=== PATIENT | female | born 1930 | race Caucasian/White ===

== ENCOUNTER 2016-12-13 14:30 | Inpatient (IN) | payer MEDICARE, OTHER ==
[~2016-12-13] VITALS: Ht 157.5 cm; Wt 69.4 kg
--- NOTE | ~2016-12-13 | PR ---
[place], [place] PROGRESS NOTE NAME: LISA LUIS UNIT #: [id number] ROOM: 408 DOCTOR: EDMUND NAJERA MD BIRTHDATE: [birth year] DOS: SUBJECTIVE: The patient is doing fine without any complaints this morning. OBJECTIVE: VITAL SIGNS: Blood pressure is 128/54, pulse of 95, respirations 20, temperature 98.5. LUNGS: Clear. HEART: Regular. ABDOMEN: Obese, soft, nontender. EXTREMITIES: Without any edema. ASSESSMENT AND PLAN: 1. Acute exacerbation of chronic obstructive pulmonary disease, stable and improved. 2. 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 As patient is stable, the plan is to discharge her to home today. She has achieved maximum benefit from her stay here. EDMUND NAJERA MD CM:PNTRANS [id number] EDMUND NAJERA MD 12/16/16 1241 interface
--- NOTE | ~2016-12-13 | WRIGHTHP ---
[place], [place] PATIENT HISTORY AND PHYSICAL EXAM NAME: LISA LUIS [facility] #: [id number] UNIT #: [id number] ROOM: 408 DOCTOR: EDMUND NAJERA MD BIRTHDATE: [birth year] DOS: 12/13/2016 HISTORY OF PRESENT ILLNESS: This patient is 86 years old, very well known to us. The patient came to the office with complaints of increasing difficulty breathing and a cough which is productive of scant amounts of sputum. She denied having any fever, chills, any chest pains or palpitations, does not have any abdominal pain, nausea, any emesis. Does not have any chest pain or pleuritic symptoms. The patient has been taking all her medications as well as breathing treatments at home and was not getting any better. PAST MEDICAL HISTORY: Significant for: 1. Last hospitalization in November 2015 with COPD exacerbation. 2. Chronic atrial fibrillation, on long-term use of anticoagulant. 3. Right atrial reentrant tachycardia. 4. History of asthma. 5. Benign hypertension. 6. Vera esophagus. 7. Hypothyroidism. 8. Sleep apnea. MEDICATIONS: She is on are Tylenol, amlodipine, Eliquis, KCl, Lexapro, levothyroxine, losartan, metoprolol, Protonix, MiraLax, Pravachol and zafirlukast. SOCIAL HISTORY: Nonsmoker, does not use any alcohol. Lives at home. PHYSICAL EXAMINATION: GENERAL: She is awake and alert and oriented. VITAL SIGNS: Graphic trend shows pressure is 120/56, pulse of 94, respirations 20, temperature 98.4. LUNGS: Diminished breath sounds. Scattered wheezes and rhonchi heard. HEART: Regular. ABDOMEN: Obese. EXTREMITIES: Without any edema. ASSESSMENT AND PLAN: An 86-year-old was seen in the office with acute exacerbation of COPD. I did try to admit, but there were no beds for direct admission. The patient was sent to the emergency room, was evaluated and was admitted. Lactic acid was normal. White cell count was normal. Chest x-ray showed COPD, no pneumonia was seen. ASSESSMENT AND PLAN: 1. Acute exacerbation of chronic obstructive pulmonary disease. The patient has been admitted. IV steroids, breathing treatments have been ordered. 2. Acute tracheobronchitis, on IV antibiotics. 3. Chronic atrial fibrillation, on Eliquis which will be continued. [place], [place] PATIENT HISTORY AND PHYSICAL EXAM NAME: LISA LUIS UNIT #: [id number] ROOM: 408 DOCTOR: EDMUND NAJERA MD BIRTHDATE: [birth year] EDMUND NAJERA MD CM:HISPHYS:PATIENT HISTORY AND PHYSICAL EXAMINATION [id number] EDMUND NAJERA MD 12/14/16 1117 interface
--- NOTE | ~2016-12-13 | DS ---
[place], [place] DISCHARGE SUMMARY NAME: LISA LUIS UNIT #: [id number] ROOM: 408 DOCTOR: EDMUND NAJERA MD BIRTHDATE: [birth year] DOS: 12/16/2016 DIAGNOSES: 1. Acute respiratory distress syndrome. 2. Acute exacerbation of chronic obstructive pulmonary disease. 3. Acute tracheobronchitis. 4. Atrial reentrant tachycardia. 5. Paroxysmal atrial fibrillation with long-term use of anticoagulants. 6. Benign hypertension. 7. Asthma, moderate, intermittent. 8. Hypothyroidism. 9. History of sleep apnea. 10. Vera's esophagus. DISCHARGE MEDICATIONS: Same as on admission. The new prescriptions given were tapering dose of prednisone and Ceftin 250 twice daily for 5 days. HOSPITAL COURSE: This patient is 86 years old, very well known to us, comes in with complaints of severe difficulty breathing and cough. Please refer to H and P for details. After admission, the patient was placed on IV steroids and antibiotics. DISCHARGE DIAGNOSES: After admission, the patient was placed on steroids and antibiotics. A Cardiology consultation was obtained. She has paroxysmal atrial fibrillation, it is controlled on the current medication. The patient also has been on long-term use of anticoagulants. The patient is relatively stable and is not having any new problems, shortness of breath and cough has improved; therefore, the plan is to be discharged to home and follow up as an outpatient. EDMUND NAJERA MD CM:BIB [id number] EDMUND NAJERA MD 12/16/16 0933 interface
--- NOTE | ~2016-12-13 | PR ---
[place], [place] PROGRESS NOTE NAME: LISA LUIS UNIT #: [id number] ROOM: 408 DOCTOR: EDMUND NAJERA MD BIRTHDATE: [birth year] DOS: 12/15/2016 SUBJECTIVE: The patient is doing fine without any complaints. Appreciate Dr. Lemra's input. OBJECTIVE: VITAL SIGNS: Graphic trend shows blood pressure 129/46, pulse of 78, respirations 16. LUNGS: Diminished breath sounds, clear. HEART: Regular. ABDOMEN: Obese. EXTREMITIES: Without any edema. ASSESSMENT AND PLAN: 1. Acute exacerbation of chronic obstructive pulmonary disease, improving and stable. We will cut back on the steroid dosage and plan is to discharge him back to home tomorrow. 2. History of wide complex atrial reentrant tachycardia, on long-term use of anticoagulants. The patient was seen by Dr. Lerma. No further workup or medication adjustments made. EDMUND NAJERA MD CM:PNTRANS 1251 [id number] EDMUND NAJERA MD 12/16/16 0125 interface
[~2016-12-13 14:30] MED LIST: AMLODIPINE5 MG PO; AUGMENTIN 875-875 MG PO; CAL-GEST500 MG PO; CIPRO500 MG PO; COLACE100 MG PO; COZAAR100 MG PO; DAYPRO600 M1 PO; DELTASONE5 MG PO; ELIQUIS5 M1 PO; ENTERIC ASPIRI325 MG PO; FLONASE 0.05% 121 EA NAS; GLYBURIDE1.5 MG PO; KCL PO; KEFLEX500 M1 PO; LEXAPRO10 MG PO; LOPRESSOR50 MG PO; LUTEIN20 MG PO; MIRALAX17 GM PO; PRAVACHOL80 M1 PO; PREDNISONE5 MG PO; PROTONIX40 MG PO; ROBAXIN750 MG PO; SIMVASTATIN80 MG PO; SYNTHROID,LEV100 MCG PO; Synthroid,Levo88 MCG PO; VITAMIN D31000 IU PO; XOPENEX0.63 MG NEB; ZAFIRLUKAST PO
[2016-12-13 14:40] VITALS: BP 134/54
[2016-12-13 15:34] LABS: BASO % 0.5 % (0.0-1.0); EOS # 0.2 10*3/uL (0.0-0.4); EOS % 2.1 % (1.0-4.0); HEMATOCRIT 44.3 % (37.0-47.0); HEMOGLOBIN 14.6 g/dl (12.0-16.0); LYMPH # 1.4 10*3/uL (1.3-4.4); LYMPH % 16.3 % (27.0-41.0); MEAN CORPUSCULAR HGB 32.3 pg (27.0-31.0); MEAN PLATELET VOLUME 11.9 fl (9.6-12.3); MONO # 0.7 10*3/uL (0.1-1.0); MONO % 7.5 % (3.0-9.0); NEUT # 6.5 10*3/uL (2.3-7.9); NEUT % 73.4 % (47.0-73.0); PLATELET COUNT AUTOMATED 173 10*3/uL (130-400); RED BLOOD COUNT 4.52 10*6/uL (4.10-5.10); RED CELL DISTRI WIDTH 12.1 % (0-14.5); WHITE BLOOD COUNT 8.8 10*3/uL (4.8-10.8)
[2016-12-13 15:50] LABS: ALBUMIN 3.5 gm/dl (3.1-4.5); ALKALINE PHOSPHATASE 87 U/L (45-117); BUN 15 mg/dl (7-24); CHLORIDE 108 mmol/L (98-107); CREATININE 0.66 mg/dL (0.55-1.02); MAGNESIUM 2.1 mg/dL (1.5-2.1); POTASSIUM 4.5 mmol/L (3.5-5.1); SGOT/AST 13 IU/L (3-35); SGPT/ALT 18 U/L (12-78); SODIUM 142 mmol/L (136-145); TOTAL PROTEIN 6.6 gm/dL (6.4-8.2)
[2016-12-13 15:54] LABS: TROPONIN I < 0.015 ng/ml (<0.045)
[2016-12-13 17:30] VITALS: BP 125/89
[2016-12-13] MEDS ORDERED: TYLENOL325 M1 PO (17:55)
[2016-12-13 20:00] VITALS: BP 119/65
[2016-12-13 20:34] LABS: BILIRUBIN NEGATIVE (NEGATIVE); BLOOD 1+ (NEGATIVE); CLARITY SL CLOUDY (CLEAR); COLOR YELLOW (YELLOW); GLUCOSE NEGATIVE (NEGATIVE); KETONE NEGATIVE (NEGATIVE); LEUKO ESTERASE NEGATIVE (NEGATIVE); NITRITE NEGATIVE (NEGATIVE); PH 5.5 (5.0-9.0); UROBILINOGEN 0.2 E.U./dl (0.2-1.0)
[2016-12-13 20:49] LABS: WBC 0-2 wbc/hpf (0-5)
[2016-12-13 20:50] LABS: BACTERIA 1+; EPITHELIAL CELLS 0-2; MUCOUS TRACE
[2016-12-14] VITALS: BP 144/61
[2016-12-14 08:00] VITALS: BP 120/56
[2016-12-14 11:36] LABS: FREE T4 1.34 ng/dl (0.76-1.46)
[2016-12-14 11:40] LABS: THYROID STIM HORMONE (HS) 0.086 uIU/ml (0.358-4.75)
[2016-12-14 12:00] VITALS: BP 122/64
[2016-12-14 16:00] VITALS: BP 121/56
[2016-12-14 20:00] VITALS: BP 129/46
[2016-12-15] VITALS: BP 122/46
[2016-12-15 05:27] LABS: BUN 15 mg/dl (7-24); CHLORIDE 101 mmol/L (98-107); CREATININE 0.66 mg/dL (0.55-1.02); MAGNESIUM 2.2 mg/dL (1.5-2.1); POTASSIUM 4.7 mmol/L (3.5-5.1); SODIUM 137 mmol/L (136-145)
[2016-12-15 08:00] VITALS: BP 128/72
[2016-12-15 12:00] VITALS: BP 120/70
[2016-12-15 16:00] VITALS: BP 138/64
[2016-12-15 20:00] VITALS: BP 145/56
[2016-12-16] VITALS: BP 128/54
[2016-12-16] MEDS ORDERED: CEFUROXIME AXE250 MG PO (07:54)
[2016-12-16] MEDS ORDERED: PREDNISONE5 MG PO (07:54)
[2016-12-16 08:00] VITALS: BP 145/68
[2016-12-16 12:00] VITALS: BP 152/70
== END 2016-12-16 14:25 | disposition home or self-care (01) | DRG 191 ==
LOC: ED 14:30 → 4E 15:16 → EDHOLD 15:16 → 4E 15:50
PROVIDERS: Emergency Medicine; Internal Medicine Hospice and Palliative Medicine; ADMIT Internal Medicine
DX: J44.1 Chronic obstructive pulmonary disease with (acute) exacerbation (principal); J80 Acute respiratory distress syndrome; I48.0 Paroxysmal atrial fibrillation; Z99.81 Dependence on supplemental oxygen; J44.0 Chronic obstructive pulmonary disease with (acute) lower respiratory infection; J20.9 Acute bronchitis, unspecified; I10 Essential (primary) hypertension; J45.20 Mild intermittent asthma, uncomplicated; E03.9 Hypothyroidism, unspecified; K22.70 Barrett's esophagus without dysplasia; Z88.6 Allergy status to analgesic agent; Z88.5 Allergy status to narcotic agent; Z88.1 Allergy status to other antibiotic agents; Z88.8 Allergy status to other drugs, medicaments and biological substances; Z79.899 Other long term (current) drug therapy; Z98.51 Tubal ligation status; Z79.01 Long term (current) use of anticoagulants

== ENCOUNTER 2018-08-20 14:10 | Inpatient (IN) | payer MEDICARE, OTHER ==
[~2018-08-20] VITALS: Ht 157.5 cm; Wt 68.6 kg
--- NOTE | ~2018-08-20 | PR ---
[place], [place] PROGRESS NOTE NAME: LISA LUIS UNIT #: [id number] ROOM: 531 DOCTOR: EDMUND NAJERA MD BIRTHDATE: [birth year] DOS: 08/25/2018 SUBJECTIVE: The patient is about the same, does not have any new complaints. OBJECTIVE: VITAL SIGNS: Graphic trend shows a pressure 110/62, pulse of 92, respirations 18, temperature 97.8. LUNGS: Diminished breath sounds. Clear this morning. HEART: Irregular. Heart rate controlled. ABDOMEN: Obese. EXTREMITIES: About 1+ pitting edema. ASSESSMENT AND PLAN: 1. Acute exacerbation of chronic obstructive pulmonary disease, on maximal treatment plan. Bronchospasm was resolving. We will taper the steroids down. 2. Chronic atrial fibrillation with rapid ventricular response. Heart rate has slowed down. 3. Adult failure to thrive, awaiting placement to [facility] tomorrow. EDMUND NAJERA MD CM:PNTRANS [phone] EDMUND NAJERA MD 08/25/18 1117 interface
--- NOTE | ~2018-08-20 | CON ---
[place], [place] REPORT OF CONSULTATION [id number] UN[facility] #: [id number] ROOM: 531 DOCTOR: RODRI AGUILAR MD BIRTHDATE: [birth year] DOS: 08/23/2018 PULMONARY CONSULTATION, EVALUATION AND MANAGEMENT REASON FOR CONSULTATION: To assess the patient for bronchoscopy. The patient was independently seen and examined in [facility] encounter. The assessment was completed after obtaining the history and physical examination, review of the labs. The management change personally recommended as well. Note done by the family practice medical doctor was approved. HISTORY OF PRESENT ILLNESS: This is an 88-year-old white female patient who has been admitted to the hospital in 07/2018. The patient stayed in the hospital for about 5 days, treated for acute exacerbation of COPD, acute bronchitis related to Pseudomonas aeruginosa. The patient discharged home as she wants to make a trip for the patient to [facility]. The patient visited her granddaughter. The patient returned back to [place]. She has been admitted to the hospital as the patient is reporting increased symptoms of chest congestion with coughing and shortness of breath. The symptoms has been noted gradually increased. She denies symptoms of wheezing. No symptoms of chest pain reported. No symptoms of hemoptysis stated by the patient. REVIEW OF SYSTEMS: CONSTITUTIONAL SYMPTOMS: Fatigue and tiredness noted without any symptoms of fever or chills. EYES: Denies burning, redness, or tenderness. EARS, NOSE, THROAT SYMPTOMS: Denies sore throat, hoarseness, otalgia, or postnasal drainage. CARDIOVASCULAR SYSTEM: Denies anginal pain, edema, or pain of the lower extremity, or palpitation. GASTROINTESTINAL SYMPTOMS: Denies dysphagia, nausea, vomiting, diarrhea, abdominal pain, hematemesis, melena, or hematochezia. GENITOURINARY SYMPTOMS: Denies dysuria, suprapubic pain, or hematuria. MUSCULOSKELETAL SYSTEM: No acute joint pain, redness, or tenderness. CENTRAL NERVOUS SYSTEM: General weakness, fatigue without any symptoms of any focal neurologic deficit stated. Remaining systems were reviewed. They were noted all negative. PAST MEDICAL HISTORY: Noted with: 1. History of permanent atrial fibrillation. 2. COPD. 3. Uncomplicated mild persistent bronchial asthma. 4. Hypothyroidism. 5. Obstructive sleep apnea disorder. 6. Vera's esophagus. 7. Partial hearing loss. 8. Mixed hyperlipidemia. SOCIAL HISTORY: The patient is currently . She lives at home. The patient does not have any past history of tobacco use or any illicit drug use. [place], [place] REPORT OF CONSULTATION NAME: LISA LUIS UNIT #: [id number] ROOM: 531 DOCTOR: RODRI AGUILAR MD BIRTHDATE: [birth year] PAST SURGICAL HISTORY: Noted: 1. Radiofrequency ablation of the atrial tract. 2. T and A as a child. 3. Appendectomy. 4. Three C-sections. 5. D and C twice. 6. Tubal ligation. 7. Removal of fatty tumor from the shoulder. 8. History of surgery for the lymphoma. FAMILY HISTORY: Unknown. CURRENT MEDICATIONS: Administered this hospitalization were noted as use of simvastatin, potassium chloride, losartan, Lasix oral, citalopram, Flonase, diltiazem, levothyroxine, Accolate, Protonix, Eliquis, Mucinex 600 mg p.o. b.i.d., levalbuterol and azithromycin. DRUG ALLERGIES: NOTED WITH ALLERGY TO THE DARVOCET, CODEINE, TETRACYCLINE, PROMETHAZINE, AND DEMEROL. PHYSICAL EXAMINATION: GENERAL: The patient is an 88-year-old female patient who has been noted currently awake and alert this morning of assessment without any acute major distress, has been noted with coughing at this time nonproductive without any sputum expectoration. VITAL SIGNS: For the patient, which are recorded as normal temperature. The respiratory rate ranged between 20-18, heart rate of 102-99, blood pressure 133/77-90/46. HEENT: Head was atraumatic. Eyes nonicterus. NECK: Supple. CARDIOVASCULAR SYSTEM: S1, S2 audible. LUNGS: Noted [id number] expiratory wheezing without any crackles. ABDOMEN: Soft, mild obesity. Bowel sounds present without any tenderness. MUSCULOSKELETAL: Without any acute deformities. CENTRAL NERVOUS SYSTEM: Appears to be intact. LABORATORY DATA: CMP that was done on 08/20/2018 as a normal BUN and creatinine. CBC on 08/20/2018 as normal hemoglobin, hematocrit and platelet count. Troponin of 3 sets on the 4th noted as normal results. Chest x-ray, 2-view, which were taken on 08/20/2018 noted change of COPD without any acute pulmonary infiltration. IMPRESSION: 1. The patient who has been currently admitted to the hospital was noted with finding of recurrent acute exacerbation of chronic obstructive pulmonary disease/bronchial asthma with significant nonproductive cough and possibility of mucus impaction of major airways. 2. The patient with chronic anticoagulation was noted with the use of Eliquis. 3. Moderate obesity history. [place], [place] REPORT OF CONSULTATION NAME: LISA LUIS UNIT #: [id number] ROOM: 531 DOCTOR: ALEX CHAMBERS MD,RODRI BIRTHDATE: [birth year] 4. History of atrial tachycardia. 5. Hypothyroidism. 6. Essential hypertension as well. PLAN OF MANAGEMENT: Continuation of the patient's bronchodilators with oxygen supplementation. She will be started on Solu-Medrol as well. Antibiotic at this time will be given based on the previous history of Pseudomonas aeruginosa with possible recurrent Pseudomonas aeruginosa, tracheobronchitis cannot be excluded. Other medical management changes for the patient will be made based on progression of the illness. Usual care. Supportive therapy, plan of management, care plan. Hold of the Eliquis on the evening of Sunday for bronchoscopy planned to be done on Sunday morning to decrease any risk of bleeding. Other supportive therapy, plan and management as well. Usual care. Thanks for allowing me to participate in the care of this patient. RODRI JOHNSON MD CM:CONSTR:REPORT OF CONSULTATION 1305 08/24/18 0208 interface
--- NOTE | ~2018-08-20 | PR ---
[place], [place] PROGRESS NOTE NAME: LISA LUIS UNIT #: [id number] ROOM: 531 DOCTOR: ALEX CHAMBERS MD,RODRI BIRTHDATE: [birth year] DOS: 08/25/2018 PULMONARY PROGRESS NOTE SUBJECTIVE: The patient was seen and examined on 08/25/2018. Continued to do well. Reduction of respiratory symptoms noted. Denies symptoms of fever, chills, or cough. The coughing has been subsiding. There were no symptoms of hemoptysis. OBJECTIVE: VITAL SIGNS: For the patient normal temperature, respiratory rate 18, heart rate 96, blood pressure 112/60, pulse oxygen saturation recorded as 94% saturation on 2 liters nasal cannula. HEENT: Examination shows head was atraumatic. Eyes nonicterus. NECK: Supple. CARDIOVASCULAR: S1, S2 audible. LUNGS: Without any crackle, rhonchi, or wheezing. ABDOMEN: Soft, nontender. EXTREMITIES: No edema. IMPRESSION: Resolving acute exacerbation of chronic obstructive pulmonary disease, gradual and progressive reduction of the symptoms of cough as well. PLAN OF MANAGEMENT: No change in plan of care. Continue current therapy as in progress with additional treatment change per patient's progression of illness. RODRI JOHNSON MD CM:PNTRANS 1321 0025 RODRI CHAMBERS MD 08/26/18 0026 interface
--- NOTE | ~2018-08-20 | WRIGHTHP ---
[place], [place] PATIENT HISTORY AND PHYSICAL EXAM [id number] UN[facility] #: [id number] ROOM: 531 DOCTOR: EDMUND NAJERA MD BIRTHDATE: [birth year] DOS: 08/20/2018 HISTORY OF PRESENT ILLNESS: The patient is very well known to us. The patient comes in to the office with complaints of increasing shortness of breath. She was just admitted to the hospital and released recently. She had to go for a graduation trip to [facility]. By the time she got back, she was increasingly short of breath as per family members and so was brought to the office. She denies having any chest pains or palpitations. She is quite tired and slightly on the confused side as per the family. PAST MEDICAL HISTORY: Significant for: 1. Recent hospitalization for COPD exacerbation. 2. Chronic atrial fibrillation. 3. Benign hypertension. 4. Moderate asthma, intermittent. 5. Hypothyroidism. 6. Sleep apnea. 7. Vera's esophagus. 8. Hearing loss. 9. Mixed hyperlipidemia, recent pseudomonas in the sputum. MEDICATIONS: Medications that she is on are Flonase p.r.n., Tylenol, Eliquis 5 b.i.d., Lexapro 10 daily, Lasix 40 b.i.d., KCl 20 daily, levothyroxine 75 mcg daily, losartan 100 daily, Protonix 40 daily, pravastatin 80 daily, zafirlukast 20 b.i.d. SOCIAL HISTORY: Nonsmoker, does not use any alcohol. PHYSICAL EXAMINATION: GENERAL: She is awake and alert and oriented, in moderate respiratory distress. VITAL SIGNS: Pressure is 115/57, pulse of 109, respirations 18, temperature 98.7. On 2 liters, oxygen saturation was 92. LUNGS: Diminished breath sounds. Scattered wheezes and rhonchi. HEART: Regular. ABDOMEN: Obese, soft. EXTREMITIES: Without any edema. ASSESSMENT AND PLAN: 1. Acute exacerbation of chronic obstructive pulmonary disease. The patient is admitted for IV steroids. 2. Adult failure to thrive, may require short-term placement for rehabilitation. PT/OT consultation will be obtained. 3. Chronic atrial fibrillation. Heart rate is slightly high this morning. The patient is placed on IV Cardizem drip. She is otherwise on maximal treatment plan. [place], [place] PATIENT HISTORY AND PHYSICAL EXAM NAME: LISA LUIS UNIT #: [id number] ROOM: 531 DOCTOR: EDMUND NAJERA MD BIRTHDATE: [birth year] EDMUND NAJERA MD CM:HISPHYS:PATIENT HISTORY AND PHYSICAL EXAMINATION 0 EDMUND NAJERA MD 08/21/18 0957 interface
--- NOTE | ~2018-08-20 | PR ---
[place], [place] PROGRESS NOTE NAME: LISA LUIS UNIT #: [id number] ROOM: 531 DOCTOR: EDMUND NAJERA MD BIRTHDATE: [birth year] DOS: SUBJECTIVE: The patient is about the same, does not have any new complaints. She feels better. OBJECTIVE: VITAL SIGNS: Graphic trend shows blood pressure of 151/61, pulse of 110, respirations 27, temperature 98.1 LUNGS: Diminished breath sounds, scattered wheezes, but improved since admission. HEART: Irregular. ABDOMEN: Obese. EXTREMITIES: Without any edema. ASSESSMENT AND PLAN: 1. Acute exacerbation of chronic obstructive pulmonary disease, on maximal treatment plan. 2. Acute tracheobronchitis, on antibiotics. 3. Adult failure to thrive. She has agreed to go to rehab. PT has been consulted. Case management looking at local rehab centers for the patient to go. EDMUND NAJERA MD CM:PNTRANS [phone] EDMUND NAJERA MD 08/23/18 0247 interface
--- NOTE | ~2018-08-20 | PR ---
[place], [place] PROGRESS NOTE [id number] UN[facility] #: [id number] ROOM: 531 DOCTOR: EDMUND NAJERA MD BIRTHDATE: [birth year] DOS: 08/24/2018 SUBJECTIVE: The patient is about the same, does not have any new complaints. She is starting to feel better, but has noticed some swelling in her legs. OBJECTIVE: VITAL SIGNS: Pressure is 99/45, pulse of 109, respirations 18, temperature 97.4. LUNGS: Diminished breath sounds, clear. This morning, her cough is also much better. HEART: Irregular. ABDOMEN: Obese, soft. EXTREMITIES: Without any edema. ASSESSMENT AND PLAN: 1. Acute exacerbation of chronic obstructive pulmonary disease, improving on current treatment plan. Bronchoscopy was not done because there was no scheduled timing on Sunday. Dr. Pastrana plans to do it on Sunday, but the patient looks like she is getting better on her own. 2. Chronic atrial fibrillation, controlled. 3. Swelling of lower legs could be related to high dose of steroids. We will give her Lasix and compression stockings. 4. Adult failure to thrive. Plan to discharge her to [place] when stable. EDMUND NAJERA MD CM:PNTRANS [phone] EDMUND NAJERA MD 08/25/18 0010 interface
--- NOTE | ~2018-08-20 | PR ---
[place], [place] PROGRESS NOTE NAME: LISA LUIS UNIT #: [id number] ROOM: 531 DOCTOR: ALEX CHAMBERS MD,RODRI BIRTHDATE: [birth year] DOS: 08/24/2018 PULMONARY PROGRESS NOTE SUBJECTIVE: The patient was noted comfortable at this time, resting, sitting on the bed this morning of assessment. The coughing has been noted decreased from yesterday examination. Shortness of breath and wheezing was also improving. There were no symptoms of chest pain, fever, or chills. OBJECTIVE: VITAL SIGNS: For the patient this morning as, sitting on the bed comfortably, was normal temperature, respiratory rate 18, heart rate 109, blood pressure 90/54, pulse ox saturation on 3 liters nasal cannula 97% saturation. HEENT: Examination shows head was atraumatic. Eyes nonicterus. NECK: Supple. CARDIOVASCULAR: S1, S2 audible. LUNGS: The patient noted decreased breath sounds bilaterally with expiratory wheezing, which were noted [id number] this morning. ABDOMEN: Soft, nontender. Bowel sounds present. EXTREMITIES: The patient was noted without any edema, clubbing, or cyanosis. LABORATORY DATA: PT and PTT were noted as normal yesterday. IMPRESSION: The patient with resolving acute tracheobronchitis with acute exacerbation of chronic obstructive pulmonary disease. PLAN OF MANAGEMENT: The patient was not require bronchoscopy at this time because of improvement noted respiratory status. We will managed the patient conservative at this time. Possible consideration of the patient home discharge in the morning could be considered based on the further improvement in the respiratory status and symptoms. Solu-Medrol dose will be decreased to 40 mg b.i.d. today. RODRI JOHNSON MD CM:PNTRANS 1425 03 RODRI CHAMBERS MD 08/24/181904 interface
--- NOTE | ~2018-08-20 | EKG ---
[place], [place] ELECTROCARDIOGRAM REPORT NAME: LISA LUIS UNIT #: [id number] ROOM: 531 DOCTOR: ELIZABETH DRAFT REPORT BIRTHDATE: [birth year] [facility] Test Date: 2018-08-23 Test Time: 14:05:38 Pat Name: LISA LUIS Department: Room: 531 1 Gender: F Dip Unit Operator: Jacklyn Angulo : 1930 Requested By: RODRI CHAMBERS Order Number: [id number] Reading MD: Rodri Pastrana MD Measurements Intervals Homer Rate: 105 P: AL: QRS: 43 QRSD: 81 T: 79 QT: 325 QTc: 430 Interpretive Statements Atrial fibrillation Borderline T wave abnormalities No previous ECG available for comparison Electronically Signed On 08-24-2018 11:57:10 PDT by Rodri Pastrana MD CM:EKGRPT:ELECTROCARDIOGRAM REPORT 1405 1157 RODRI CHAMBERS MD EPIPHANY DRAFT REPORT RODRI CHAMBERS MD
--- NOTE | ~2018-08-20 | PR ---
[place], [place] PROGRESS NOTE [id number] #: [id number] ROOM: 531 DOCTOR: EDMUND NAJERA MD BIRTHDATE: [birth year] DOS: 08/26/2018 SUBJECTIVE: The patient is sitting up in bed, doing well, does not have any complaints today. OBJECTIVE: VITAL SIGNS: Blood pressure is 100/30, pulse of 20, respirations 18, temperature 97.5. LUNGS: Diminished breath sounds. Clear. HEART: Irregular. ABDOMEN: Obese. EXTREMITIES: Without any edema. LABORATORY DATA: This morning showed a blood sugar was 487, BUN 26, creatinine 1.10, sodium 135, potassium 4.4, chloride 97, this is new onset diabetes. WBC count is 8.9, hemoglobin 11.2. ASSESSMENT AND PLAN: 1. Acute exacerbation of chronic obstructive pulmonary disease, finally improved and stable. Plan is to discharge. Discussed with Dr. Pastrana. Chest x-ray showed COPD, no pneumonia was seen. White cell count is normal. 3. Hyperglycemia, steroid-induced. The patient has been placed on coverage scale and Amaryl. EDMUND NAJERA MD CM:PNTRANS 0845 1305 EDMUND NAJERA MD 08/26/18 1306 interface
--- NOTE | ~2018-08-20 | PR ---
[place], [place] PROGRESS NOTE NAME: LISA LUIS UNIT #: [id number] ROOM: 531 DOCTOR: RODRI AGUILAR MD BIRTHDATE: [birth year] DOS: 08/26/2018 PULMONARY PROGRESS NOTE SUBJECTIVE: The patient noted comfortable at this time, resting on the bed this morning, continues to show improvement and resolution of acute symptoms this morning. Denies symptoms of fever or chills. Coughing has been subsiding, but not completely resolved. OBJECTIVE: VITAL SIGNS: Normal temperature, respiratory rate 20, heart rate 101, blood pressure 100/30. The pulse oxygen saturation on 2 liters nasal cannula 92% saturation recorded. HEENT: Examination shows head was atraumatic. Eyes nonicterus. NECK: Supple. CARDIOVASCULAR: S1, S2 is audible. LUNGS: The patient was noted without any wheezing or crackles at the present time. Breaths are noted [id number] decreased bilaterally with occasional wheezing, no crackles. ABDOMEN: Soft, nontender. Bowel sounds present. EXTREMITIES: No acute change. LABORATORY DATA: CBC: Normal WBC count and platelet count. Blood sugar was 487. BUN 26, creatinine 1.10. IMPRESSION: 1. Resolving acute exacerbation of chronic obstructive pulmonary disease, acute bronchitis, gradually and progressive on current medical management. 2. Uncontrolled hyperglycemia as well. PLAN OF TREATMENT: Change the Solu-Medrol 20 mg daily this morning and to be discontinued after 3 days. Continue antibiotics. Discharge planning was discussed with Dr. Ashley Phelps. [place], [place] PROGRESS NOTE NAME: LISA LUIS UNIT #: [id number] ROOM: 531 DOCTOR: RODRI AGUILAR MD BIRTHDATE: [birth year] RODRI OJHNSON MD CM:PNTRANS [id number] RODRI CHAMBERS MD 08/26/18 1350 interface
--- NOTE | ~2018-08-20 | DS ---
[place], [place] DISCHARGE SUMMARY NAME: LISA LUIS UNIT #: [id number] ROOM: 531 DOCTOR: EDMUND NAJERA MD BIRTHDATE: [birth year] DOS: 08/26/2018 DIAGNOSES: 1. Acute exacerbation of chronic obstructive pulmonary disease. 2. Metabolic encephalopathy, multifactorial. 3. Chronic atrial fibrillation. 4. Benign hypertension. 5. History of moderate intermittent asthma. 6. Hypothyroidism. 7. Sleep apnea. 8. Vera's esophagus. 9. Mixed hyperlipidemia. 10. Recent hospitalization with the Pseudomonas in the sputum. 11. New onset steroid-induced hyperglycemia. MEDICATIONS ON DISCHARGE: Will be zafirlukast 10 mg daily, KCl 20 daily, Protonix 40 daily, Lexapro 10 daily, losartan 100 daily, Flonase nasal spray 2 sprays each nostril daily, MiraLax 17 grams daily, Eliquis 5 b.i.d., Pravachol 80 daily, Tylenol 650 q. 6 p.r.n., levothyroxine 75 mcg daily, Lasix 40 b.i.d., Amaryl 2 mg daily sliding scale. Blood sugars twice a day with coverage, ADA 1800 calories, DuoNebs q. 6, diltiazem 240 mg daily, Ceftin 250 mg twice daily for 5 days and prednisone 10 mg daily for 5 days, 5 mg daily for 5 days, and then discontinue. HOSPITAL COURSE: This patient is 88 years old, very well known to us, comes in with complaints of difficulty breathing. Please refer to H and P for details. She also was confused at the house. She was admitted, was placed on IV fluids, IV antibiotics, breathing treatments, oxygen supplementation. The patient improved initially, but continued to have cough and shortness of breath, so Dr. Pastrana was consulted with possible bronchoscopy but the patient continues to improve and did not require it. Routine labs at the time of admission did show a blood sugar of 128, but then the blood sugar on a repeat lab later on done around 487. This is most likely steroid-induced and the blood sugar should come down once the steroids are tapered off. Until then, she will be on Amaryl and coverage scale. The patient did have PT, OT consultation and Social Service was consulted for placement short-term for rehabilitation because the patient has had multiple admissions recently. The patient has been accepted at [facility], and so the plan is to discharge her today. [place], [place] DISCHARGE SUMMARY NAME: LISA LUIS UNIT #: [id number] ROOM: 531 DOCTOR: EDMUND NAJERA MD BIRTHDATE: [birth year] EDMUND NAJERA MD CM:DISCHARG [id number] EDMUND NAJERA MD 08/26/18 1123 interface
--- NOTE | ~2018-08-20 | PR ---
[place], [place] PROGRESS NOTE NAME: LISA LUIS UNIT #: [id number] ROOM: 531 DOCTOR: EDMUND NAJERA MD BIRTHDATE: [birth year] DOS: SUBJECTIVE: The patient continues to have a cough and just unable to cough up much mucus. She feels better overall. Denies having any complaints today. OBJECTIVE: GENERAL: She is awake and alert and oriented. VITAL SIGNS: Blood pressure is 132/70, pulse of 76 and irregular, respiratory rate 20. LUNGS: Diminished breath sounds, scattered wheezes and rhonchi today. HEART: Regular. ABDOMEN: Obese, soft, nontender. EXTREMITIES: Without any edema. ASSESSMENT AND PLAN: 1. Acute exacerbation of chronic obstructive pulmonary disease, already on maximal treatment plan. We will consult Dr. Pastrana and possible bronchoscopy if we could get a better culture. 2. Recent hospitalization for acute exacerbation with pseudomonas in the sputum was completely treated. 3. Adult failure to thrive, awaiting placement to [facility]. 4. Chronic atrial fibrillation, already on appropriate treatment regimen. EDMUND NAJERA MD CM:PNTRANS [id number] EDMUND NAJERA MD 08/24/18 0409 interface
[~2018-08-20 14:10] MED LIST changes: +CEFUROXIME AXE250 MG PO; +LEVAQUIN750 M1 PO; +SYNTHROID,LEVO75 MCG PO; +TYLENOL325 M1 PO
[2018-08-20 14:55] VITALS: BP 138/80
[2018-08-20 15:00] VITALS: BP 140/78
--- NOTE | 2018-08-20 15:00 | NUR ---
A 88, DIRECTLY admitted to , under the services of EDMUND Faustin MD with a diagnosis of CHF. Chief complaint is DYSPNEA, BILATERAL LE EDEMA. Patient arrived via ambulatory from [place]. Monitor applied. Initial assessment completed. Vital signs taken and recorded. EDMUND FAUSTIN MD notified of admission to the unit. Orders received. See assessment for past medical history, medications and allergies. Patient and/or family oriented to unit.TELEMETRY visitation policy reviewed. Clothing/patient valuable form completed. ALONDRA MARTINEZ
[2018-08-20 16:00] VITALS: BP 133/76; BP 138/80
[2018-08-20 17:09] LABS: BASO % 0.4 % (0.0-1.0); EOS # 0.2 10*3/uL (0.0-0.4); EOS % 1.7 % (1.0-4.0); HEMATOCRIT 44.7 % (37.0-47.0); HEMOGLOBIN 14.6 g/dl (12.0-16.0); LYMPH # 0.8 10*3/uL (1.3-4.4); LYMPH % 8.6 % (27.0-41.0); MEAN CELL VOLUME 101.1 fl (81.0-99.0); MEAN CORPUSCULAR HGB CONC 32.7 g/dl (33.0-37.0); MONO # 0.7 10*3/uL (0.1-1.0); MONO % 7.8 % (3.0-9.0); NEUT # 7.6 10*3/uL (2.3-7.9); PLATELET COUNT AUTOMATED 163 10*3/uL (130-400); RED BLOOD COUNT 4.42 10*6/uL (4.10-5.10); RED CELL DISTRI WIDTH 12.4 % (0-14.5); WHITE BLOOD COUNT 9.4 10*3/uL (4.8-10.8)
[2018-08-20 17:27] LABS: ALKALINE PHOSPHATASE 79 U/L (45-117); BUN 16 mg/dl (7-24); CHLORIDE 103 mmol/L (98-107); CREATININE 0.71 mg/dL (0.55-1.02); POTASSIUM 4.1 mmol/L (3.5-5.1); SGOT/AST 13 IU/L (3-35); SGPT/ALT 25 U/L (12-78); SODIUM 142 mmol/L (136-145); TOTAL PROTEIN 6.5 gm/dL (6.4-8.2)
[2018-08-20 17:32] LABS: TROPONIN I < 0.015 ng/ml (<0.045)
[2018-08-20] MEDS ORDERED: FUROSEMIDE40 MG PO (18:14)
[2018-08-20 20:00] VITALS: BP 109/46
[2018-08-21] VITALS (9 sets, daily range): BP systolic 103–142; BP diastolic 48–86
--- NOTE | 2018-08-21 09:00 | NUR ---
Travel Counselor in to talk to patient. Patient states lives at home with her daughter. There are 18 steps in the home. Physician: Dr. Ashley Phelps Pharmacy: mail order or [facility] Home health services: none Patient's level of ADLs: INDEPENDENT Patient has working utilities: yes DME: O2 @ 3L nc, portable O2 tanks, nebulizer, O2 supplier BMS Follow-up physician's appointment after d/c: she prefers to make her own follow up appt after discharge Does patient want to access PORTAL?: no Discharge plan discussed with patient. She lives at home with her daughter. She is independent in her ADLs and ambulation. Discussed home health care services and she denies any home needs at this time. When medically stable she will be discharged to home. TETO BRIONES
--- NOTE | 2018-08-21 10:57 | NUR ---
PHYSICAL THERAPY Patient evaluated on 5, full evaluation to follow. Continue with PT as per plan of care with fall, 02, cardiac and acute debility precautions. May require SNF. PAtient is moderate complexity via chart review, tests and evaluation: 12193. Thank you for this referral. Alisia Falcon,PT
--- NOTE | 2018-08-21 15:24 | NUR ---
MEDICATED WITH PRN TYLENOL FOR C/O HEADACHE.
[2018-08-22] VITALS (11 sets, daily range): BP systolic 101–151; BP diastolic 50–68
--- NOTE | 2018-08-22 08:58 | NUR ---
Patient requesting a referral to [facility]. contacted facility and faxed referral. Waiting on review. Requires 3 night stay.
--- NOTE | 2018-08-22 09:00 | NUR ---
Program Eligibility Specialist in to see patient. Discussed short term rehab and she chose [facility]. Informed [facility] was full. When provided with a list of other facilities she chose [facility]. account planner notified.
--- NOTE | 2018-08-22 09:11 | NUR ---
PHYSICAL THERAPY Informed consent given by patient. Patient has no new concerns or complaints. Patient is on 3 liters of spO2 VIA NASAL CANULA. Patient's pulse before therapy session is 125 and RN informed of patient's pulse rate. RN informed this PARTS COUNTER SALES PERSON that the patient is on a cardizim drip and it is OK to do therapy with her. Patient transferred supine to sitting at EOB with MIN A X 1. Patient transferred sit to stand with MIN A X 1. Patient stand pivot transfer to bedside chair with MIN A X 1. Patient's pulse is 145 post transferring to a bedside chair. Patient then sit to stand from bedside chair with MIN A X 1. Patient stood at bedside chair for 1 minute with eyes open and CGA X 1 without LOB. Patient stood staggered stance 30 seconds with each foot forwards and 1 LOB to the left requiring MIN A X 1 to correct. PATIENT'S PULSE RECORDED 165 POST DOING THE STANDING BALANCE ACTIVITIES. Patient does NOT have chair alarm attached and NURSE was informed of this and she said it was OK for her NOT to have a chair alarm because of her being a fall risk. Patient was left in sitting position with call light within reach, and LEs elevated. Patient was 1:1 with this PARTS COUNTER SALES PERSON for 16 minutes total. JOAN FAGAN PARTS COUNTER SALES PERSON
--- NOTE | 2018-08-22 14:39 | NUR ---
PHYSICAL THERAPY Informed consent given by patient for afternoon treatment. Patient has no complaints. Patient is on cardizim drip. Patient is 3 liters of spO2 via nasal canula. Patient's pulse was recorded as 105 - 110 and O2 SATS recorded as 94% - 98% prior to therpy session. Patient transfers sit to stand with MIN A X 1 with verbal cues for pushing off armrests of chair with hands. Patient ambulated with no assisitive and WOOD VENEER TAPER X 1 for 30' x 1 with spO2 and IV pole in tow. Patient had no LOB with gait. Patient O2 SATS were recorded as 95% - 97% and pulse at 110 following ambulation. Patient then performed seated bilateral LE ther ex 2 x 10 reps each in all planes of movement for strengthening the LEs in order to improve patient's functional mobility. Patient's pulse back up to 120 following ther ex in seated position. Patient was left in bedside chair with call light within reach, spO2 connected to wall outlet, and tray table near patient. RN says chair aalrm is NOT necessary for this patient becuase she is not a fall risk. Patient was 1:1 with this OSTOMY CARE NURSE for 17 minutes total. JOAN FAGAN OSTOMY CARE NURSE
--- NOTE | 2018-08-22 21:22 | NUR ---
FAMILY MEMEBER CALLED IN TO INFORM STAFF THAT PATIENT NEEDS TO SIGN PAPERS FROM [facility], THEY NEED NOTARIZED, AND SHE CAN NOT BE DISCHARGED UNTIL 3PM IF DISCHARGED ON 08/23/18.
--- NOTE | 2018-08-22 23:10 | NUR ---
PATIENT MEDICATED WITH TYLENOL PER PRN ORDER FOR C/O HEADACHE. RATED PAIN MILD. REINFORCED USE OF CALL LIGHT.
[2018-08-23] VITALS (12 sets, daily range): BP systolic 91–140; BP diastolic 46–82
--- NOTE | 2018-08-23 07:05 | NUR ---
24 HR CHART CHECK COMPLETE
--- NOTE | 2018-08-23 08:53 | NUR ---
[facility], 3 night stay completed. Patient is ok to go when medically stable for discharge.
--- NOTE | 2018-08-23 08:58 | NUR ---
SURGERY CALLED AND STATED PER DR JOHNSON BRONCHOSCOPY WILL BE PERFORMED SUNDAY R/T SCHEDULE CONFLICT.
--- NOTE | 2018-08-23 09:00 | NUR ---
Product Management Analyst in to see patient. She is sitting on the edge of her bed without distress noted. She states she is having a bronchoscopy with Dr. Pastrana today. Discussed her family calling and about her having to sign court papers today. Those papers are for oil rights to property that her sister owns. She states she will see how she feels after the procedure. When medically stable she will be discharged to [facility]. senior program planner following.
--- NOTE | 2018-08-23 10:04 | NUR ---
24 HR CHART CHECK COMPLETE
--- NOTE | 2018-08-23 10:18 | NUR ---
PT'S BP WAS 140/62 AND HR IS 110-120'S. CARDIZEM DRIP INCREASED TO 10CC/HR PER TITRATION ORDER.
--- NOTE | 2018-08-23 11:42 | NUR ---
PHYSICAL THERAPY Informed consent given by patient. Patient has no concerns or complaints. Patient's pulse at 112 at rest before therapy session. Patient is on 3 liters of spO2 via nasal canula. Patient supine to sitting at EOB transfer with CGA. Patient O2 sat RECORDED 95%. Patient ambulated 36' x 1 with CGA X 1 and 3 liters of spO2 and IV pole in tow by this LINE WALKER ,with no LOB or other difficulty. Patient standing tolerance E/O for 1 minute with SBA with 1 minor LOB requiring MIN A X 1 to correct. Patient performed 5 Xs sit to stands in 15 seconds total and ONE minor LOB that the patient corrected herself. Patient was left in sitting position at EOB with call light within reach, commode in front of patient ,and curtain pulled for patient privacy. Patient was 1:1 with this LINE WALKER for 18 minutes total. JOAN FAGAN LINE WALKER
[2018-08-23 13:55] LABS: ACT PARTIAL THROMBO TIME 32.8 SECONDS (20.0-32.1)
--- NOTE | 2018-08-23 20:30 | NUR ---
Patient is resting in bed with easy and regular respers on 3L via nasal cannula. Assessment is complete with no c/o or s/s of distress noted at this time. Bed is low, locked, and call light is within reach. See shift assessment.
--- NOTE | 2018-08-23 21:54 | NUR ---
2200 medications given at this time as well as Cardizem gtt being titrated to 15ml/hr at this time. Patient tolerated well, call light is within reach.
[2018-08-24] VITALS (12 sets, daily range): BP systolic 98–125; BP diastolic 45–84
--- NOTE | 2018-08-24 | NUR ---
Patient is resting in bed with easy and regular respers on room air. No s/s of distress or c/o voiced at this time. Call light is within reach.
--- NOTE | 2018-08-24 01:04 | NUR ---
Cardizem #4 initiated at this time running at 15ml/hr, patient is tolerating well. Call light is within reach.
--- NOTE | 2018-08-24 03:15 | NUR ---
PRN Tylenol given at this time for c/o headache, call light is within reach. Will monitor effect.
--- NOTE | 2018-08-24 04:00 | NUR ---
PRN Tylenol seems effective, patient is sleeping with easy and regular respers on room air. Call light is within reach.
--- NOTE | 2018-08-24 05:17 | NUR ---
0600 medications given at this time, patient tolerated well. Call light is within reach.
[2018-08-25] VITALS (15 sets, daily range): BP systolic 92–139; BP diastolic 30–82
--- NOTE | 2018-08-25 00:01 | NUR ---
24 HR chart check completed.
--- NOTE | 2018-08-25 00:20 | NUR ---
CARDIZEM GTT TITRATED FROM 15 MG/HR TO 10MG/HR. HR IN 70S AND BP 100S/50S
--- NOTE | 2018-08-25 01:00 | NUR ---
PATIENT RESTING IN BED. NO SIGNS OR SYMPTOMS OF DISTRESS. RESPIRATIONS EASY NONLABORED ON ROOM AIR. CARDIZEM GTT RUNNING AT 10MG/HR.
--- NOTE | 2018-08-25 04:10 | NUR ---
PATIENT RESTING IN BED. NO SIGNS OR SYMPTOMS OF DISTRESS. RESPIRATIONS EASY NONLABORED ON ROOM AIR. CARDIZEM INFUSING AT 10MG/HR.
--- NOTE | 2018-08-25 14:29 | NUR ---
DECREASED CARDIZEM DRIP TO 5MG FROM 10MG. PATIENT'S HEART RATE 87 PER CM. NO S/S OF DISTRESS. CALL LIGHT WITHIN REACH. ASYMPTOMATIC OF HYPOTESION.
--- NOTE | 2018-08-25 20:36 | NUR ---
CARDIZEM DRIP VERIFIED WITH NURSE WILSON.
[2018-08-26] VITALS: BP 100/30; BP 99/52
--- NOTE | 2018-08-26 00:16 | NUR ---
24 HR chart check completed.
--- NOTE | 2018-08-26 00:30 | NUR ---
DR. NAJERA NOTIFIED OF PT BLOOD PRESSURE OF 100/30. ORDERED TO Gabo VANESSA
[2018-08-26 06:27] LABS: HEMATOCRIT 34.1 % (37.0-47.0); HEMOGLOBIN 11.2 g/dl (12.0-16.0); MEAN CELL VOLUME 99.1 fl (81.0-99.0); MEAN CORPUSCULAR HGB 32.6 pg (27.0-31.0); MEAN CORPUSCULAR HGB CONC 32.8 g/dl (33.0-37.0); MEAN PLATELET VOLUME 11.7 fl (9.6-12.3); PLATELET COUNT AUTOMATED 225 10*3/uL (130-400); RED BLOOD COUNT 3.44 10*6/uL (4.10-5.10); RED CELL DISTRI WIDTH 12.5 % (0-14.5); WHITE BLOOD COUNT 8.9 10*3/uL (4.8-10.8)
[2018-08-26 06:38] LABS: CREATININE 1.1 mg/dL (0.55-1.02); POTASSIUM 4.4 mmol/L (3.5-5.1)
[2018-08-26 06:50] LABS: TOTAL CELLS COUNTED 100 #CELLS
[2018-08-26 06:51] LABS: PLATELET SUFFICIENCY NORMAL (NORMAL)
[2018-08-26 06:52] LABS: BURR CELLS FEW
[2018-08-26 06:53] LABS: SCHISTOCYTES FEW
--- NOTE | 2018-08-26 06:55 | NUR ---
DR. MARIN NOTIFIED OF CRITICAL GLUCOSE OF 487. AWAITING ORDERS.
--- NOTE | 2018-08-26 09:00 | NUR ---
Unit Coordinator in to see patient. No new needs or request at this time. When medically stable she will be [facility]. process planner following.
--- NOTE | 2018-08-26 09:54 | NUR ---
PHYSICAL THERAPY Patient gives informed consent. Patient has no concerns or complaints. Patient's O2 SAT was recorded as 96% and pulse at 118 - 132. Patient transferred supine to sitting at EOB with MIN A X 1. Patient sit to stand MIN A X 1 to CGA. Patient is on 2 liters of spO2 via nasal canula. Patient ambulated with no assistive device and CGA X 1 for 50' x 1 with 2 liters of spO2 with no LOB. Patient's O2 SAT was 89% post ambulating and pulse was 129. Patient sat in bedside chair with CGA X 1. Patient sit to stand transfer again with MIN A X 1 with verbal cues for pushing off armrests of chair with hands. Patient stood EYES CLOSED for 1 minute with 1 LOB, which required MIN A X 1 to correct. Patient stood and performed dynamic standing balance reaching across mid line x 8 each hand with 1 minor LOB which the patient corrected herself. Patient performed seated bilateral LE THER EX 2 x 10 reps each in all planes of movement for strengthening the LEs in order to improve patient's functional mobility. Patient was left in bed side chair with call light within reach, O2 connected to the wall, and LEs elevated. Patient was 1:1 with this PENAL OFFICER for 23 minutes total. JOAN FAGAN PENAL OFFICER
--- NOTE | 2018-08-26 10:35 | NUR ---
patient is discharged to [facility], transportation scheduled for 2 PM with [employer]. NH, nursing/ward supervisor and daughter all notified.
--- NOTE | 2018-08-26 11:14 | NUR ---
PHYSICAL THERAPY CO-SIGN I approve of the Phyical Therapy notes written above. MARLA MCFARLAND PT
[2018-08-26 12:00] VITALS: BP 127/89
--- NOTE | 2018-08-26 14:10 | NUR ---
REPORT CALLED TO NURSE NOVOA AT [facility].
--- NOTE | 2018-08-26 14:25 | NUR ---
PT DISCHARGED. LEFT FLOOR VIA STRETCHER IN THE [facility]. REPORT CALLED TO [facility]. PACKET SENT WITH PT.
== END 2018-08-26 14:58 | disposition other institution (70) | DRG 190 ==
LOC: 5E 14:10
PROVIDERS: Internal Medicine Critical Care Medicine; ADMIT Internal Medicine
DX: J44.0 Chronic obstructive pulmonary disease with (acute) lower respiratory infection (principal); G93.41 Metabolic encephalopathy; J45.31 Mild persistent asthma with (acute) exacerbation; J44.1 Chronic obstructive pulmonary disease with (acute) exacerbation; I48.2 Chronic atrial fibrillation; I10 Essential (primary) hypertension; R73.9 Hyperglycemia, unspecified; G47.33 Obstructive sleep apnea (adult) (pediatric); E03.9 Hypothyroidism, unspecified; R62.7 Adult failure to thrive; J20.9 Acute bronchitis, unspecified; E78.2 Mixed hyperlipidemia; M79.89 Other specified soft tissue disorders; E66.9 Obesity, unspecified; K22.70 Barrett's esophagus without dysplasia; T38.0X5A Adverse effect of glucocorticoids and synthetic analogues, initial encounter; Y92.238 Other place in hospital as the place of occurrence of the external cause; Z90.49 Acquired absence of other specified parts of digestive tract; Z98.891 History of uterine scar from previous surgery; Z98.51 Tubal ligation status; Z88.8 Allergy status to other drugs, medicaments and biological substances; Z88.5 Allergy status to narcotic agent; Z79.01 Long term (current) use of anticoagulants; Z88.1 Allergy status to other antibiotic agents; Z68.27 Body mass index [BMI] 27.0-27.9, adult